=== PATIENT | female | born 1965 | race Caucasian/White ===

== ENCOUNTER 2019-12-24 04:24 | Day surgery (SDC) | payer OTHER ==
[2019-12-23 12:13] VITALS: BMI 30.3
[2019-12-24 12:30] LABS: HEMOGLOBIN 12.4 GM/dL (10.7-15.3); MCH 28.6 pg (25.7-33.7); MCHC 33.5 g/dl (32.0-36.0); MEAN CELL VOLUME 85.6 fl (80-96); MEAN PLT VOLUME 10.2 fl (7.5-11.1); PLATELET COUNT 220 K/MM3 (134-434); RBC 4.32 M/mm3 (3.60-5.2); RDW 13.9 % (11.6-15.6); WHITE BLOOD COUNT 6.6 K/mm3 (4.0-10.0)
[2019-12-24] MEDS ORDERED: LIDOCAINE HCL 2% 100 MG/5 ML DISP.SYRIN ONE (12:45)
[2019-12-24] MEDS ORDERED: DEXAMETHASONE SOD PHOSPHATE 4 MG/1 ML VIAL ONE (12:45)
[2019-12-24] MEDS ORDERED: PROPOFOL 20 ML ONE ×2 (12:46→13:29)
[2019-12-24] MEDS ORDERED: MIDAZOLAM HCL 2 MG/2 ML SINGLE DOSE VIAL ONE (12:46)
[2019-12-24 12:51] LABS: INR 1.03 (0.83-1.09); PROTHROMBIN TIME (PATIENT) 12.2 SEC (9.7-13.0)
[2019-12-24] MEDS ORDERED: oxyCODONE HCL 5 MG TABLET PO PRN (13:08)
[2019-12-24] MEDS ORDERED: LACTATED RINGERS SOLUTION 1,000 ML IV SCH (13:15)
--- NOTE | 2019-12-24 13:20 | HP ---
Admitting History and Physical - Admission History of Present Illness: 54yo F with persistent L labial mass Causing pain and discomfort Too deep to safely remove through office I&D Has been present for over 10 years, slowly growing in size No overlying skin issues/lesions History Source: Patient Limitations to Obtaining History: Language Barrier - Past Medical History [employer] DES[employer]: No: Alzheimer's, CVA, Dementia, Migraine, Multiple Sclerosis, Peripheral Neuropathy, Parkinson's, Seizure, Syncope, TIA, Vertigo, Other Cardiovascular: No: AFIB, Aneurysm, Aortic Insufficiency, Aortic Stenosis, CAD, CHF, Deep Vein Thrombosis, HTN, Hyperlipdemia, VA, Mitral Insufficiency, Mitral Stenosis, Murmur, Pulmonary Hypertension, Other Pulmonary: No: Asthma, Bronchitis, Cancer, COPD, O2 Dependent, Pneumonia, Previously Intubated, Pulmonary Embolus, Pulmonary Fibrosis, Sleep Apnea, Other Gastrointestinal: No: Ascites, Cancer, Constipation, Crohn's Disease, Diverticulitis, Diverticulosis, Esophageal Varices, Gastritis, GERD, GI Bleed, Hemorrhoids, Hiatal Hernia, Inflamatory Bowel Disease, Irritable Bowel Disease, Pancreatitis, Peptic Ulcer Disease, Ulcerative Colitis, Other Hepatobiliary: No: Cirrhosis, Cholelithiasis, Cholecystitis, Chol edocholithiasis, Hepatitis A, Hepatitis B, Hepatitis C, Other Renal/: No: Renal Failure, Renal Inusuff, BPH, Cancer, Hematuria, Hemodialysis, Neurogenic Bladder, Renal Calculi, UTI, Other Reproductive: No: Ectopic , Endometriosis, Fibroids, PID, Polycystic Ovary Syndrome, Postmenopausal, Other ...LMP Comment: 3 YEARS AGO Heme/Onc: No: Anemia, B12 Deficiency, Bleeding Disorder, Cancer, Current Chemotherapy, Current Radiation Therapy, Hemochromatosis, Hypercoaguable State, Myeloproliferative Synd, Sickle Cell Disease, Sickle Cell Trait, Thrombocytopenia, Other Infectious Disease: No: AIDS, C-Diff, Herpes Zoster, HIV, MRSA, STD's, Tuberculosis, VREF, Other Psych: No: Addictions, Anxiety, Bipolar, Depression, Panic, Psychosis, Schizo phrenia, Other Musculoskeletal: No: Bursitis, Chronic low back pain, Hemiparesis, Hemiplegia, Osteoarthritis, Paraplegia, Other Rheumatology: No: Fibromyalgia, Gout, Lupus, Rheumatoid Arthritis, Sarcoidosis, Vasculitis, Other ENT: No: Allergic Rhinitis, Sinusitis, Other Endocrine: No: Brent's Disease, Mirella's Disease, Diabetes Insipidus, Diabetes Mellitus, Hyperparathyroidism, Hyperthyroidism, Hypothyroidism, Osteopenia, SIADH, Other - Past Surgical History Past Surgical History: No: None, AAA Repair, AICD, Amputation, Appendectomy, Arthrosocopy, AV Fistula/Graft, Bariatric Surgery, Breast Biopsy, Bypass, CABG, Carotid Endarterectomy, Cataract Removal, Cholecystectomy, Colectomy, Colonoscopy, Colostomy, Craniotomy, , Cystectomy, Hernia Repair, Hysterectomy, Ileal Conduit, Ileosotomy, Joint Replacement, Kidney Transplant, Laminectomy, Liver Transplant, Mastectomy, Nephrectomy, Oopherectomy, Orchiectomy, Permanent Pacemaker, Prostatectomy, Splenectomy, Stent, Thoracotomy, TURP, Tonsillectomy, Tubal Ligation, Upper Endoscopy, Valve Rep lacement, Vasectomy, Vein Stripping/Ligation - Smoking History Smoking history: Former smoker Have you smoked in the past 12 months: No If you are a former smoker, when did you quit?: August Home Medications - Allergies Allergies/Adverse Reactions: Allergies Allergy/AdvReac Type Severity Reaction Status Date / Time No Known Allergies Allergy Verified 12/23/19 12:14 - Home Medications Home Medications: Ambulatory Orders Cholecalciferol (Vitamin D3) [Vitamin D-400] 1,000 mg PO DAILY 12/23/19 Lisinopril [Prinivil] 5 mg PO DAILY 12/23/19 Naproxen [Naprosyn -] 500 mg PO PRN 12/23/19 Physical Examination Vital Signs: Vital Signs Temperature 97.7 F 12/24/19 11:07 Pulse Rate 62 12/24/19 11:07 Respiratory Rate 20 12/24/19 11:07 Blood Pressure 119/78 12/24/19 11:07 O2 Sat by Pulse Oximetry (%) 100 12/24/19 11:08 Constitutional: Yes: Well Nourished, No Distress, Calm Edema: No Integumentary: Yes: WNL (Solid L 2-3cm mobile mildly tender labia majora mass) Labs: CBC, BMP 12/24/19 10:50 Assessment/Plan 54yo with L labial mass NPO, IVFs IV anesthesia Labs done; COVID negative Reviewed risk of procedure, including bleeding, infection, pain/discomfort. All questions answered. Consents signed Judi Watts MD
[2019-12-24] MEDS ORDERED: SUCCINYLCHOLINE CHLORIDE 200 MG/10 ML SYRINGE ONE (13:42)
[2019-12-24] MEDS ORDERED: EPHEDRINE SULFATE/0.9% NACL/PF 50 MG/10 ML SYRINGE NR ONE (13:45)
[2019-12-24] MEDS ORDERED: LIDOCAINE HCL 1%, 10 MG/ML (50 mL VIAL) NR ONE ×2 (14:00)
--- NOTE | 2019-12-24 14:41 | OP ---
Operative Note - Note: Operative Date: 12/24/19 Pre-Operative Diagnosis: Left Labial Cyst Operation: Excision of Left Labial Cyst Findings: Solid 2-3cm left labial majora mass Normal vulva Post-Operative Diagnosis: Same as Pre-op Surgeon: Livier Watts Estimated Blood Loss (mls): 15 Operative Report Dictated: Yes
[2019-12-24 15:33] VITALS: TEMP 96.8
[2019-12-24 16:43] VITALS: BP 127/80; PULSE 68
--- NOTE | 2019-12-24 19:38 | OP ---
DATE OF OPERATION: 12/24/2019 PREOPERATIVE DIAGNOSIS: Left labial cyst. POSTOPERATIVE DIAGNOSIS: Left labial cyst. PROCEDURE: Excision of left labial cyst. ANESTHESIA: IV sedation. INTRAVENOUS FLUIDS: Per anesthesia record. ESTIMATED BLOOD LOSS: 15 mL. URINE OUTPUT: Not measured. SURGEON: Kyra Jacob MD FINDINGS: A solid, 2- to 3-cm left labial majora mass. Normal vulva. Normal vagina. COMPLICATIONS: None. CONDITION: Stable to recovery room. NATURE OF THE PROCEDURE: After the appropriate consents were signed, patient was taken to the operating room. IV sedation was administered. She was placed in dorsal lithotomy position. The surgical field was prepped and draped in normal sterile fashion. A timeout was performed confirming correct patient and procedure. Next, 1% lidocaine was injected into the patient's left labia at the area of the labial mass. Using a 15-blade scalpel, an incision was made overlying the mass, carried through to the underlying layers until which the solid portion of the mass was reached. Using a hemostat, the incision was gently opened to allow for excision of the lesion. The base of the solid mass was grasped with the hemostat, and using scalpel, it was freed from its insertion. This was done in 1 other area to accommodate and complete excision of the mass. The base was inspected, noted to be hemostatic. The area of the space was then closed with a 3-0 Vicryl. The skin was closed with a 3-0 Biosyn. Attention was then paid to an area lateral to the original incision point which was also noted to have what appeared like a dense mass. This area was then also injected with lidocaine and then using a scalpel the area incised. Under digital inspection, no solid discrete mass was palpated. The area was then also closed with a 3-0 Vicryl to bring the edges together and close space, and then, the skin was closed with a 3-0 Biosyn. Steri-Strips were placed. All sponge, lap, needle counts were correct. The patient did not receive antibiotics at the start of the procedure. She was taken from the operating room to the recovery area in stable condition. KYRA JACOB MD [id number]
--- NOTE | 2019-12-30 15:14 | PATH ---
Surgical Pathology Report Patient Name: SHWETA CHO Med. Rec. #: [id number] /Age/Gender: 1965 (Age: 54) / F Account: [id number] Location: [facility] SURGICAL Taken: 12/24/2019 Received: 12/25/2019 Reported: 12/30/2019 Physicians: Livier Watts Specimen(s) Received LEFT LABIAL MASS Clinical History Left labial mass Final Diagnosis LEFT LABIAL MASS, EXCISION: FIBROUS TISSUE WITH CHRONIC INFLAMMATION, OLD HEMORRHAGE, AND MARKED REACTIVE HISTIOCYTIC AGGREGATE. NEGATIVE FOR CARCINOMA. Comment: Immunohistochemical stains show the lesional cells are negative for AE1/3, S100, NSE, SOX 10, while positive of histiocyte marker CD68, support the above diagnosis. AE1/3 and S100 performed and interpreted at [facility]. CD68, NSE and SOX 10 performed at [place], [place] ([id number]) and interpreted at [facility]. Positive and negative controls (internal if applicable) show appropriate results. Electronically Signed Lila Hsu M.D. Gross Description Received in formalin labeled "left labial mass," is a 1.1 x 0.8 x 0.3 cm aggregate of yellow-cowan soft tissue fragments. The formalin is filtered and the specimen is entirely submitted in one cassette. /12/25/201912/25/2019
== END 2019-12-24 16:30 | disposition home or self-care (01) ==
LOC: JASU-SURG 04:24
PROVIDERS: ATTEND Obstetrics & Gynecology
PROC: 0UBM0ZX Excision of Vulva, Open Approach, Diagnostic (ICD-10-PCS; principal; 2019-12-24 13:00)
DX: N90.7 Vulvar cyst (principal)
CPT/HCPCS: 36415; 84702; 85027; 85610; 86850; 86900; 86901; 86922; 88305-TC; 88342-TC; 94760

== ENCOUNTER 2020-06-16 07:32 | Day surgery (SDC) | payer OTHER ==
[2020-06-09 10:58] VITALS: BMI 31.1
[2020-06-16] MEDS ORDERED: MIDAZOLAM HCL 2 MG/2 ML SINGLE DOSE VIAL ONE (07:53)
[2020-06-16] MEDS ORDERED: ONDANSETRON 4 MG/2 ML VIAL ONE (07:53)
[2020-06-16] MEDS ORDERED: LIDOCAINE HCL/PF 2% SDV 5ML VIAL ONE (07:53)
[2020-06-16] MEDS ORDERED: KETOROLAC TROMETHAMINE 30 MG/1 ML VIAL ONE (07:53)
[2020-06-16] MEDS ORDERED: PROPOFOL 20 ML ONE ×2 (07:53→08:51)
[2020-06-16] MEDS ORDERED: DEXAMETHASONE SOD PHOSPHATE 4 MG/1 ML VIAL ONE (07:53)
[2020-06-16] MEDS ORDERED: BUPIVACAINE HCL/PF 0.25% (2.5MG/ML) 10 ML VIAL ONE (08:41)
[2020-06-16] MEDS ORDERED: ONDANSETRON 4 MG/2 ML VIAL IVPUSH PRN (08:47)
[2020-06-16] MEDS ORDERED: oxyCODONE HCL 5 MG TABLET PO PRN ×2 (08:47)
[2020-06-16] MEDS ORDERED: LACTATED RINGERS SOLUTION 1,000 ML IV SCH (09:00)
[2020-06-16] MEDS ORDERED: BUPIVACAINE HCL/PF 0.25% (2.5MG/ML) 10 ML VIAL IJ ONE (09:22)
[2020-06-16 11:35] VITALS: BP 114/70; PULSE 57; TEMP 97.9
== END 2020-06-16 11:35 | disposition home or self-care (01) ==
LOC: FASU 07:32
PROVIDERS: ATTEND Orthopaedic Surgery Hand Surgery
PROC: 01N54ZZ Release Median Nerve, Percutaneous Endoscopic Approach (ICD-10-PCS; principal; 2020-06-16 09:12)
DX: G56.01 Carpal tunnel syndrome, right upper limb (principal)
CPT/HCPCS: 94760

== ENCOUNTER 2022-02-15 22:13 | Observation (INO) | payer OTHER ==
[2022-02-15 22:25] VITALS: BMI 24.5
[2022-02-16 00:39] LABS: BASO % 0.9 % (0-2.0); EOS % 2.2 % (0-4.5); HEMATOCRIT 34.2 % (32.4-45.2); HEMOGLOBIN 11.6 GM/dL (10.7-15.3); LYMPH % 39.8 % (8-40); MCH 28.4 pg (25.7-33.7); MEAN CELL VOLUME 83.4 fl (80-96); MEAN PLT VOLUME 9.3 fl (7.5-11.1); MONO % 6.3 % (3.8-10.2); NEUT % 50.8 % (42.8-82.8); PLATELET COUNT 215 10^3/uL (134-434); WHITE BLOOD COUNT 6.8 K/mm3 (4.0-10.0)
[2022-02-16 01:01] LABS: CALCIUM 8.9 mg/dL (8.5-10.1)
[2022-02-16 01:02] LABS: ALBUMIN 3.7 g/dl (3.4-5.0); BLOOD UREA NITROGEN 17.2 mg/dL (7-18)
[2022-02-16 01:05] LABS: CREATININE 0.7 mg/dL (0.55-1.3)
[2022-02-16 01:07] LABS: BILIRUBIN,TOTAL 0.5 mg/dL (0.2-1); TOT PROT 6.8 g/dl (6.4-8.2)
[2022-02-16] MEDS ORDERED: ASPIRIN 81 MG CHEWABLE TABLETS PO ONE (01:40)
[2022-02-16] MEDS ORDERED: ASPIRIN 81 MG CHEWABLE TABLETS ONE (02:57)
[2022-02-16 03:11] VITALS: RESP 18
[2022-02-16] MEDS ORDERED: ATORVASTATIN CA 80 MG TABLET (FP) PO SCH (03:11)
[2022-02-16] MEDS ORDERED: ATORVASTATIN CA 80 MG TABLET (FP) ONE (05:56)
[2022-02-16 06:28] VITALS: BP 169/85; PULSE 55; TEMP 97.2
[2022-02-16 08:16] LABS: BASO % 0.8 % (0-2.0); EOS % 2.1 % (0-4.5); HEMOGLOBIN 11.9 GM/dL (10.7-15.3); LYMPH % 44.4 % (8-40); MCH 27.3 pg (25.7-33.7); MCHC 33.2 g/dl (32.0-36.0); MEAN CELL VOLUME 82.4 fl (80-96); MEAN PLT VOLUME 9.8 fl (7.5-11.1); NEUT % 46.7 % (42.8-82.8); PLATELET COUNT 207 10^3/uL (134-434); RBC 4.37 M/mm3 (3.60-5.2); RDW 15.2 % (11.6-15.6); WHITE BLOOD COUNT 5.4 K/mm3 (4.0-10.0)
[2022-02-16 08:38] LABS: CALCIUM 8.9 mg/dL (8.5-10.1)
[2022-02-16 08:39] LABS: ALBUMIN 3.7 g/dl (3.4-5.0); BLOOD UREA NITROGEN 13.9 mg/dL (7-18); MAGNESIUM 2.4 mg/dL (1.8-2.4)
[2022-02-16 08:42] LABS: CREATININE 0.6 mg/dL (0.55-1.3); PHOSPHOROUS 3.7 mg/dL (2.5-4.9)
[2022-02-16 08:43] LABS: BILIRUBIN,TOTAL 0.6 mg/dL (0.2-1); TOT PROT 6.7 g/dl (6.4-8.2)
[2022-02-16] MEDS ORDERED: ESCITALOPRAM OXALATE 10 MG TABLET PO SCH (10:00)
[2022-02-16] MEDS ORDERED: LISINOPRIL 5 MG TABLET PO SCH (10:00)
[2022-02-16] MEDS ORDERED: LORATADINE 10 MG TABLET PO SCH (10:00)
[2022-02-16] MEDS ORDERED: ENOXAPARIN NA (PORCINE) 40 MG/0.4 ML DISP.SYRIN SQ SCH (10:00)
[2022-02-16] MEDS ORDERED: clonazePAM 0.5 MG ODT TABLETS SL SCH (10:00)
[2022-02-16] MEDS ORDERED: NICOTINE 7 MG/24 HOURS TOPICAL PATCH TD SCH (10:00)
[2022-02-16] MEDS ORDERED: clonazePAM 0.5 MG TABLET ONE (10:07)
[2022-02-16] MEDS ORDERED: HYDROCHLOROTHIAZIDE 25 MG TABLET (FP) ONE (10:07)
[2022-02-16] MEDS ORDERED: ENOXAPARIN NA (PORCINE) 40 MG/0.4 ML DISP.SYRIN SQ ONE (10:08)
[2022-02-16] MEDS ORDERED: ESCITALOPRAM OXALATE 10 MG TABLET ONE (10:08)
[2022-02-16] MEDS ORDERED: LISINOPRIL 5 MG TABLET ONE (10:08)
[2022-02-16] MEDS ORDERED: LORATADINE 10 MG TABLET ONE (10:08)
[2022-02-16] MEDS ORDERED: NICOTINE 7 MG/24 HOURS TOPICAL PATCH TD ONE (10:08)
[2022-02-16] MEDS: HYDROCHLOROTHIAZIDE 12.5 MG CAPSULE (FP) PO SCH ×2 (10:09→10:10)
[2022-02-16] MEDS ORDERED: MIRTAZAPINE 15 MG TABLET (FP) PO SCH (22:00)
== END 2022-02-16 13:45 | disposition home or self-care (01) ==
LOC: JER 22:13 → JERBED 02-16 01:28
PROVIDERS: ADMIT Internal Medicine; ATTEND Internal Medicine
PROC: 3E023GC Introduction of Other Therapeutic Substance into Muscle, Percutaneous Approach (ICD-10-PCS; principal; 2022-02-16)
DX: Z98.84 Bariatric surgery status (principal); I10 Essential (primary) hypertension; F41.9 Anxiety disorder, unspecified; Z72.0 Tobacco use; E78.5 Hyperlipidemia, unspecified
CPT/HCPCS: 36415; 71046-TC-FY; 80053; 80061; 83735; 84100; 84443; 84484; 85025; 93005; 93010; 93306-TC; 96372; 99285-25; C9803-CS; G0378; U0003; U0005